=== PATIENT | female | born 1980 | race Caucasian/White ===

== ENCOUNTER 2020-12-27 18:17 | Emergency (ER) | payer BC, OTHER ==
[~2020-12-27] VITALS: Ht 157.5 cm; Wt 117.0 kg
[~2020-12-27 18:17] MED LIST: DOCU50CA3 PO; IBUP-1223 PO; OXYC1TAB14 PO; PNV1TABL11 PO; PSYL0.5215 PO; SENN-92 PO
--- NOTE | 2020-12-27 18:41 | NUR ---
PT CAME IN CO UPPER BACK PAIN THAT CAME ON SUDDENLY AT WORK. DENIES TRAUMA. PT TAKING ABX CURRENTLY FOR "HIGH WBC". PT HAS HX OF ITP. PT RESTING IN RNEY CONNECTED TO MONITORING EQUIPMENT
[2020-12-27] MEDS ORDERED: KETOROLAC 30 MG/1 ML IM ONE (19:00)
[2020-12-27] MEDS ORDERED: KETOROLAC 30 MG/1 ML ONE (19:01)
[2020-12-27 19:17] LABS: MICROSCOPIC NOT IND
[2020-12-27 19:19] LABS: BASOPHILS % (AUTO) 1 % (0-1); EOSINOPHILS % (AUTO) 1 % (1-7); LYMPHOCYTES % (AUTO) 25 % (22-44); MEAN CORPUSCULAR HGB CONC 33.9 g/dL (32.4-35.8); MEAN PLATELET VOLUME 7.7 fL (7.4-10.4); MONOCYTES % (AUTO) 9 % (2-9); NEUTROPHILS % (AUTO) 64 % (42-75); PLATELET COUNT 554 x10^3/uL (130-400); RED BLOOD COUNT 5.26 x10^6/uL (3.82-5.3); RED CELL DISTRIBUTION WIDTH 14.2 % (9.6-15.2)
[2020-12-27 19:31] LABS: ALBUMIN 3.9 g/dL (3.4-5.0); ANION GAP 3 mmol/L (5-15); CALCIUM 9.2 mg/dL (8.5-10.1); CHLORIDE 107 mmol/L (98-107); CREATININE 1.06 mg/dL (0.55-1.02)
[2020-12-27 19:36] LABS: ALANINE AMINOTRANSFERASE 50 U/L (12-78); ALKALINE PHOSPHATASE 99 U/L (45-117); BILIRUBIN,TOTAL 0.4 mg/dL (0.2-1.0); TOTAL PROTEIN 8.4 g/dL (6.4-8.2)
[2020-12-27 19:45] LABS: MD MORPH REVIEW ONLY
[2020-12-27 19:47] LABS: ACANTHOCYTES 1+
[2020-12-27 19:48] LABS: <PLATELET ESTIMATE> INCREASED
[2020-12-27 19:49] LABS: HOWELL-JOLLY BODIES 1+
--- NOTE | 2020-12-27 20:07 | NUR ---
PT REPORTS HER PAIN HAS IMPROVED. PT UP FOR RECHECK. VSS.
[2020-12-27 20:28] LABS: GIANT PLATELETS 1+
[2020-12-27] MEDS ORDERED: HYDROcodone/APAP 5/325 TABLET ONE (20:43)
--- NOTE | 2020-12-27 20:47 | NUR ---
PT MEDICATED PER MAR
[2020-12-27] MEDS ORDERED: HYDROcodone/APAP 5/325 TABLET PO ONE (21:00)
[2020-12-27 21:31] VITALS: BP 124/65
--- NOTE | 2020-12-27 21:34 | NUR ---
PT RESTING IN [facility]. VSS. AWAITING CT RESULTS
--- NOTE | 2020-12-27 22:03 | NUR ---
REPORT GIVEN TO CORTNEY RN
--- NOTE | 2020-12-27 22:03 | NUR ---
Report received from VINITA Smalls. This RN to assume care.
[2020-12-27] MEDS ORDERED: LIDODERM 5% PATCH TD ONE ×2 (22:08→22:30)
== END 2020-12-27 22:29 | disposition home or self-care (01) ==
LOC: ED 22:05
DX: S29.012A Strain of muscle and tendon of back wall of thorax, initial encounter (principal); R07.9 Chest pain, unspecified; X58.XXXA Exposure to other specified factors, initial encounter; Y93.89 Activity, other specified; Y92.89 Other specified places as the place of occurrence of the external cause; Y99.8 Other external cause status
CPT/HCPCS: 36415; 71045; 74176; 80053; 81003; 83690; 84702; 85025; 96372; 99285; J1885